=== PATIENT | female | born 1990 | race Caucasian/White ===

== ENCOUNTER 2018-07-03 07:08 | Inpatient (IN) | payer BC, SELFPAY ==
[2018-07-03 07:20] VITALS: BMI 24.6
[2018-07-03] MEDS: Lactated Ringers 1,000 ML 50 ML IV ×3 (07:30→16:25)
[2018-07-03 07:45] LABS: Absolute Lymphocyte Count 2.41 X10^3/ul (0.83-4.51); Absolute Neutrophil Count 5.9 X10^3/uL (2.0-7.7); Basophil# 0.01 X10^3/uL; Basophil% 0.1 % (0-1); Eosinophil# 0.06 X10^3/uL; Eosinophils% 0.7 % (0-5); Hematocrit 35.8 % (37-47); Hemoglobin 11.8 g/dl (12.0-15.0); Lymphocyte # 2.41 X10^3/ul (4.0); Lymphocyte % 26.6 % (19-41); Monocyte# 0.63 X10^3/uL; Monocyte% 6.9 % (0-10); Neutrophil # 5.92 X10^3/uL (2.7-7.7); Neutrophil % 65.3 % (47-70); Platelet Count 210 K/mm3 (150-450); RBC Distribution Width CV 13.5 % (11.6-14.6); RBC Distribution Width SD 42.9 fl (35.1-43.9); Red Blood Count 4.07 M/mm3 (4.2-5.4); White Blood Count 9.1 K/mm3 (4.4-11.0)
[2018-07-03 07:46] LABS: POSITIVE COUNT NO; POSITIVE DIFFERENTIAL NO; POSITIVE MORPHOLOGY NO
[2018-07-03] MEDS: 0.9% Normal Saline 100 ML IV.SOLN. INTRA-UTER (07:48)
[2018-07-03] MEDS: Oxytocin 30 units/NS 500 ml 30 UNITS/500 ML IV.SOLN IV (07:59)
--- NOTE | 2018-07-03 08:34 | HP.PCM_ITS ---
History Date of Admission: 07/03/18 Final CHAGO: 06/27/18 Final CHAGO Source: US <20 weeks Gestational age: 40 Weeks and 6 Days History of this : This is a 28 year-old, 28-year-old 1 para 0 at 40-6/7 weeks for induction of labor due to being 40-6/7 weeks gestation. has been uncomplicated to date. She had good movement. No vaginal bleeding leaking of fluid.. Allergies ibuprofen Allergy (Verified 07/03/18 08:23) Hives Smoking Status: Never smoker Number of Fetus(es): 1 Heart Tracing: Category 1 upon admission TOCO Analysis: irreg ctxs History Past Pregnancies: Past Pregnancies Delivery Date Name GA/Weeks Outcome Route Weight Infant Gender Labor Length Anesthesia Delivery Location Provider FOB Review of Systems Constitutional: Denies: Chills, Fever Cardiovascular: Denies: Chest Pain Respiratory: Denies: Cough Gastrointestinal: Denies: Abdominal Pain Genitourinary: Denies: Dysuria Skin: Denies: Rash Hematologic/ Lymphatic: Reports: Anemia Physical Exam General: Alert, Cooperative, No apparent distress Abdomen: Soft, Non-Distended, Gravid Extremities:: No edema UNIV[employer]ITY TUTOR: Normal external genitalia Estimated gestational size: Appropriate for gestational size Presentation: Cephalic Cervix Dilation (cm): 2 Station: -2 Effacement (%): 70 Assessment/Plan This is a 28 year-old, @ 40-6/7 weeks gestation for induction of labor due to be approximating 41 weeks. [place] and alternatives to induction of labor and was discussed with patient, questions were answered to her satisfaction she desires to proceed we will proceed with Pitocin and Dailey induction. Pelvis is clinically adequate to expect vaginal delivery and estimated weight clinically would be less than 4500 g. Procedure note: Dailey catheter was placed over the cervix in the usual sterile fashion without difficulty and the balloon was inflated to 30 cc with normal saline. Placement over internal cervical loss was confirmed. Patient tolerated the procedure well. Will start Pitocin.
[2018-07-03] MEDS: fentaNYL-bupivacaine (epidural) 100 ML BAG EPIDURAL ×2 (11:45→16:24)
[2018-07-03] MEDS: Ondansetron 4 MG/2 ML Vial IV (17:30)
[2018-07-03] MEDS: Oxytocin 30 units/NS 500 ml 30 UNITS/500 ML IV.SOLN 334 UNITS IV (19:15)
--- NOTE | 2018-07-03 19:38 | OP.PCM_ITS ---
Report of Operation Date of Procedure: 07/03/18 Vaginal Delivery Maternal Presentation: Spontaneous Rupture of Membranes, Medically Indicated Induction Method of Induction: Pitocin, Dailey Bulb, Amniotomy Medical Reason for Induction: - - 40 6/7 weeks Amniotic Membrane Rupture Type: Artificial Amniotic Fluid Description: Moderate meconium Final CHAGO: 06/27/18 Gestational age: 40 Weeks and 6 Days Date of Procedure: 07/03/18 Pre-Operative Diagnosis: labor Post-Operative Diagnosis: same Surgery/ Procedure Performed: Spontaneous Vaginal Delivery Type of Anesthesia: Epidural Description of Procedure: A vigorous female was delivered WING over an intact perineum. The patient had a hymenal remnant band on the right side that split as the head was . The remainder the was delivered with maternal pushing and gentle traction only in less than 15 seconds. The Pitocin infusion was initiated for active management of the third stage. The cord was clamped and cut and not delayed because of the moderate meconium, but the became vigorous very quickly and was left on the maternal abdomen and placed skin to skin initially. The was then having some grunting was then evaluated by the reading recovery teacher on the warmer. The placenta was delivered spontaneously and intact. The cervix and vagina were intact. Where the hymenal remnant had split, the ends of this were oversewn to obtain hemostasis. There were no other lacerations. Sponge and needle counts were correct. A vaginal sweep was completed by me. Presentation: WING Placental Delivery Description: Spontaneous Placenta Disposition: [facility] Cord Vessel Description: 3 Vessels Cord Entanglement: None Drain: Dailey to straight drain Estimated Blood Loss: 200 Infant A gender: Female Episiotomy Description: None Laceration: 1st degree - vaginal Medications given after delivery: IV Pitocin Complications: None
[2018-07-03] MEDS: Oxytocin 30 units/NS 500 ml 30 UNITS/500 ML IV.SOLN 167 UNITS IV (19:45)
[2018-07-04] VITALS (7 sets, daily range): BP systolic 88–109; BP diastolic 52–64; PULSE 69–82; RESP 16–18; TEMP 36.1–37.1; O2SAT 98
[2018-07-04] MEDS: Naproxen 250 MG Tablet 500 MG PO ×3 (00:53→17:26)
--- NOTE | 2018-07-04 08:26 | PCM.PN.OB ---
Subjective: pain well controlled, average lochia - Physical Exam General: Alert, Cooperative, No apparent distress Vital Signs Temp Pulse Resp BP Pulse Ox 97.0 F L 81 18 107/58 L 98 07/04/18 03:50 07/04/18 03:50 07/04/18 03:50 07/04/18 03:50 07/04/18 03:50 Oxygen Delivery Method Room Air Weight: 67.222 kg Body Mass Index (BMI) 24.6 Intake and Output for Last 24 Hours 07/02/18 07/03/18 07/04/18 23:59 23:59 23:59 Intake Total 3200 / 3200 Output Total 1400 / 1400 700 / 700 Balance 1800 / 1800 -700 / -700 Laboratory Tests Past 24 Hrs 07/03/18 07:30 Blood Type A POSITIVE Antibody Screen NEGATIVE Medical Necessity - Tobacco Use Smoking Status: Never smoker Assessment/Plan PPD#1 s/p doing well infant working on
[2018-07-05 01:46] VITALS: BP 97/59; PULSE 82; RESP 18; TEMP 36.6
[2018-07-05 08:18] VITALS: BP 97/57; PULSE 76; RESP 16; TEMP 36.6
--- NOTE | 2018-07-05 09:10 | PCM.PN.OB ---
Subjective: pain well controlled, average lochia - Physical Exam General: Alert, Cooperative, No apparent distress Vital Signs Temp Pulse Resp BP Pulse Ox 97.8 F 76 16 97/57 L 98 07/05/18 08:18 07/05/18 08:18 07/05/18 08:18 07/05/18 08:18 07/04/18 03:50 Oxygen Delivery Method Room Air Weight: 67.222 kg Body Mass Index (BMI) 24.6 Intake and Output for Last 24 Hours 07/03/18 07/04/18 07/05/18 23:59 23:59 23:59 Intake Total 3200 / 3200 Output Total 1400 / 1400 700 / 700 Balance 1800 / 1800 -700 / -700 Medical Necessity - Tobacco Use Smoking Status: Never smoker Assessment/Plan PPD#2\ doing well routine care
--- NOTE | 2018-07-05 09:13 | PCM.DCVAG ---
Discharge Diet: No Restrictions Discharge Activity: Return to Normal Activity, May not drive while taking narcotic pain medications., May Shower May resume sexual activity in: 4-6 weeks Additional Activity Instructions:: Nothing in the vagina for 4-6 weeks. You may return to work/school in 6 weeks. Call your doctor if your incision/area has: Continuous Slow Oozing, Sudden Increased Bleeding, Increased Pain/ Swelling, Increased Redness, Foul Smelling Discharge Additional Instructions: If you experience any of the following, contact your healthcare provider. Bleeding that soaks a pad every hour for 2 hours Fever 100.4 or higher Unrelieved incision or abdominal pain Swelling, redness, discharge or bleeding from your incision or episiotomy site Your incision begins to separate Problems urinating (including inability to urinate or burning while urinating). Visual changes Severe headache Flu-like symptoms Pain or redness in one of both of your breasts Pain, warmth, tenderness or swelling in your legs, especially the calf area Frequent nausea and vomiting Symptoms of depression or anxiety If you experience any of the following, call 911 or go to the nearest Emergency Room. Chest pain Problems breathing Seizure activity Partial or complete paralysis of a body part, slurred speech, weakness or drooping of the face, or a sudden inability to walk or hold your balance Allergies/Adverse Reactions: Allergies ibuprofen Allergy (Verified 07/03/18 08:23) Hives Please Follow Up With: Frida Belle MD - [phone] When: Call to make an appointment with your doctor in 6 weeks. 1-2 weeks as needed Primary Care Physician: Clifford Callaway MD [Primary Care Provider] - Test Results: Test results from this visit will be discussed in further detail at your follow-up appointment, if applicable.
--- NOTE | 2018-07-05 09:14 | DCINST_ITS ---
Discharge Diet: No Restrictions Discharge Activity: Return to Normal Activity, May not drive while taking narcotic pain medications., May Shower May resume sexual activity in: 4-6 weeks Additional Activity Instructions:: Nothing in the vagina for 4-6 weeks. You may return to work/school in 6 weeks. Call your doctor if your incision/area has: Continuous Slow Oozing, Sudden Increased Bleeding, Increased Pain/ Swelling, Increased Redness, Foul Smelling Discharge Additional Instructions: If you experience any of the following, contact your healthcare provider. * Bleeding that soaks a pad every hour for 2 hours * Fever 100.4 or higher * Unrelieved incision or abdominal pain * Swelling, redness, discharge or bleeding from your incision or episiotomy site * Your incision begins to separate * Problems urinating (including inability to urinate or burning while urinating). * Visual changes * Severe headache * Flu-like symptoms * Pain or redness in one of both of your breasts * Pain, warmth, tenderness or swelling in your legs, especially the calf area * Frequent nausea and vomiting * Symptoms of depression or anxiety If you experience any of the following, call 911 or go to the nearest Emergency Room. * Chest pain * Problems breathing * Seizure activity * Partial or complete paralysis of a body part, slurred speech, weakness or drooping of the face, or a sudden inability to walk or hold your balance Allergies/Adverse Reactions: Allergies ibuprofen Allergy (Verified 07/03/18 08:23) Hives Please Follow Up With: Frida Belle MD - [phone] When: Call to make an appointment with your doctor in 6 weeks. 1-2 weeks as needed Primary Care Physician: Clifford Callaway MD [Primary Care Provider] - Test Results: Test results from this visit will be discussed in further detail at your follow- up appointment, if applicable.
[2018-07-05] MEDS: Naproxen 250 MG Tablet 500 MG PO (10:25)
[2018-07-05 12:10] VITALS: BP 104/52; PULSE 78; RESP 16; TEMP 37.1
--- NOTE | 2018-07-10 18:48 | NURSING ---
No answer on follow up phone call, left voice mail
== END 2018-07-05 13:05 | disposition home or self-care (01) | DRG 807 ==
PROVIDERS: Admitting Provider Obstetrics & Gynecology; Family Provider Family Medicine; PCP Family Medicine; Referring Provider Obstetrics & Gynecology; Visit Provider Obstetrics & Gynecology
DX: O48.0 Post-term pregnancy (principal); Z37.0 Single live birth; Z3A.40 40 weeks gestation of pregnancy; O77.0 Labor and delivery complicated by meconium in amniotic fluid; O70.0 First degree perineal laceration during delivery
CPT/HCPCS: 59025; 59050; 85025; 86850; 86900; 99218; J7120; G0378; J2405

== ENCOUNTER 2020-06-25 02:35 | Inpatient (IN) | payer BC, SELFPAY ==
[2020-06-25] VITALS (38 sets, daily range): BP systolic 97–138; BP diastolic 56–96; PULSE 69–96; RESP 14–18; TEMP 36.6–37.2; O2SAT 87–100; BMI 25.3
[2020-06-25] MEDS: Lactated Ringers 500 ML 999 ML IV ×2 (02:45→03:35)
[2020-06-25] MEDS: Lactated Ringers 1,000 ML 50 ML IV (02:45)
[2020-06-25 02:59] LABS: Absolute Lymphocyte Count 2.96 X10^3/uL (0.83-4.51); Absolute Neutrophil Count 8.4 X10^3/uL (2.0-7.7); Basophil# 0.02 X10^3/uL; Basophil% 0.2 % (0-1); Eosinophil# 0.09 X10^3/uL; Eosinophils% 0.7 % (0-5); Hematocrit 38.1 % (37-47); Hemoglobin 12.6 g/dL (12.0-15.0); Lymphocyte # 2.96 X10^3/ul (0.83-4.51); Lymphocyte % 23.8 % (19-41); Mean Corp Hgb Conc 33.1 g/dL (32-36); Mean Corpuscular Hgb 29.9 pg (27.0-32.0); Mean Corpuscular Volume 90.5 fL (81-99); Mean Platelet Vol. 11.4 fl (6.2-12.0); Monocyte# 0.86 X10^3/uL; Monocyte% 6.9 % (0-10); NRBC Flagged by Analyzer 0 % (0-5); Neutrophil # 8.44 X10^3/uL (2.7-7.7); Neutrophil % 67.9 % (47-70); Platelet Count 237 K/mm3 (150-450); RBC Distribution Width CV 12.7 % (11.6-14.6); RBC Distribution Width SD 41.2 fl (35.1-43.9); Red Blood Count 4.21 M/mm3 (4.2-5.4); White Blood Count 12.4 K/mm3 (4.4-11.0)
[2020-06-25] MEDS: fentaNYL-bupivacaine (epidural) 100 ML BAG EPIDURAL (03:45)
--- NOTE | 2020-06-25 04:01 | NURSING ---
pt declines zofran at this time
[2020-06-25] MEDS: Oxytocin 30 units/NS 500 ml 30 UNITS/500 ML IV.SOLN 334 UNITS IV (04:43)
--- NOTE | 2020-06-25 05:07 | PCM.HP.OB ---
HPI - General General Date of Admission: 06/25/20 HPI Narrative DARSHAN NGUYEN, is a 30 F who presents with LOF and ctxs. PFSH Allergy/AdvReac Type Severity Reaction Status Date / Time ibuprofen Allergy Hives Verified 06/25/20 02:44 Surgical History (Updated 06/25/20 @ 05:[address] Trina Lewis MD) History of surgery [place] teeth removed Social History Smoking Status: Never smoker History 2 Elective abortions Hx Para 1 Spontaneous abortions Hx # Term Pregnancies Ectopic pregnancies Hx # Pregnancies Multiple births # of living children Vital Signs Vital Signs Vital Signs: 06/25/20 02:28 06/25/20 02:29 06/25/20 03:18 Temperature 98.2 F Temperature Source Pulse Rate 70 82 85 Blood Pressure 116/83 H BP Systolic 116 BP Diastolic 83 Pulse Ox 98 99 06/25/20 03:20 06/25/20 03:23 06/25/20 03:28 Temperature Temperature Source Pulse Rate 85 94 87 Blood Pressure 134/93 H 120/76 BP Systolic 134 120 BP Diastolic 93 76 Pulse Ox 92 96 98 06/25/20 03:31 06/25/20 03:33 06/25/20 03:42 Temperature Temperature Source Pulse Rate 94 92 82 Blood Pressure 129/85 H 116/77 BP Systolic 129 116 BP Diastolic 85 77 Pulse Ox 98 97 06/25/20 03:44 06/25/20 03:47 06/25/20 03:48 Temperature Temperature Source Pulse Rate 82 81 Blood Pressure 122/77 H 115/77 BP Systolic 122 115 BP Diastolic 77 77 Pulse Ox 98 06/25/20 03:52 06/25/20 03:54 06/25/20 03:57 Temperature Temperature Source Pulse Rate 83 81 Blood Pressure 138/77 H BP Systolic 138 BP Diastolic 77 Pulse Ox 97 98 06/25/20 03:58 06/25/20 04:02 06/25/20 04:04 Temperature Temperature Source Pulse Rate 87 87 77 Blood Pressure 128/96 H 122/88 H BP Systolic 128 122 BP Diastolic 96 88 Pulse Ox 95 06/25/20 04:07 06/25/20 04:08 06/25/20 04:13 Temperature Temperature Source Pulse Rate 88 94 93 Blood Pressure BP Systolic BP Diastolic Pulse Ox 96 94 87 06/25/20 04:17 06/25/20 04:18 06/25/20 05:00 Temperature 98.2 F Temperature Source Temporal Pulse Rate 84 92 89 Blood Pressure 109/61 BP Systolic 109 BP Diastolic 61 Pulse Ox 100 93 97 Physical Exam Const alert and oriented x3 Assessment & Plan Assessment/Plan (1) Supervision of normal : Status: Acute Code(s): Z34.90 - Encounter for supervision of normal , unspecified, unspecified trimester Plan: 30yo in labor Admit to L&D Expectant management EFW - less than 4500g, patient with adequate pelvis GBS positive - pcn per protocol Pain - epidural Routine care
--- NOTE | 2020-06-25 05:18 | EX.PCM.OBRPT ---
Report of Operation (OB) Information Final CHAGO: 06/26/20 Gestational age: 39 Weeks and 6 Days Operative Information Date of Procedure: 06/25/20 Pre-Operative Diagnosis: Labor Post-Operative Diagnosis: Labor Type of Anesthesia: Epidural Findings Description of Procedure: Patient prepped & draped in stirrups when C/C/+2. She pushed well to deliver the head. Shoulders & body easily followed. placed on maternal abdomen where 3VC clamped & cut in delayed fashion. Placenta delivered with gentle traction and good uterine tone obtained. : 9 at 1 minute and 9 at 5 minutes 3VC No nuchal cord Surgery/ Procedure Performed: Spontaneous Vaginal Delivery Presentation: Positive for Vertex Amniotic Fluid Description: Clear Placental Delivery Description: Expressed Placenta Disposition: [facility] Gender: Male (Peter) Delayed Cord Clamping: Yes Esitmated Blood Loss (mL): 450ml Medications Given Medications Given After Delivery: IV Pitocin Post Vaginal Delivery Episiotomy Description: None Laceration: 2nd degree (perineal - repaired with 3-0 vicryl)
[2020-06-25] MEDS: 0.9% Saline Lock 10 ML Syringe IV (07:04)
--- NOTE | 2020-06-25 12:12 | PCM.PN.OB ---
Subjective Subjective: Patient feeling good. Minimal pain. Voiding and ambulating without difficulty. with support. Anticipate discharge tomorrow. Objective Data Objective Data Vital Signs: Vital Signs Temp Pulse Resp BP Pulse Ox 98.9 F 73 14 97/57 L 95 06/25/20 12:02 06/25/20 12:02 06/25/20 12:02 06/25/20 12:02 06/25/20 06:47 Oxygen Delivery Method Room Air Weight: 147 lb 11.2 oz Body Mass Index (BMI) 25.3 Intake & Output: Intake and Output for Last 24 Hours 06/23/20 06/24/20 06/25/20 23:59 23:59 23:59 Intake Total 2326.78 / 2326.78 Output Total 200 / 200 Balance 2126.78 / 2126.78 Lab / Micro Data Result Diagrams: 06/25/20 02:50 Labs: Laboratory Results - last 24 hr 06/25/20 06/25/20 02:50 02:50 WBC 12.4 H RBC 4.21 Hgb 12.6 Hct 38.1 MCV 90.5 MCH 29.9 MCHC 33.1 RDW Std Deviation 41.2 RDW Coeff of Hailey 12.7 Plt Count 237 MPV 11.4 Immature Gran % (Auto) 0.500 Neut % (Auto) 67.9 Lymph % (Auto) 23.8 Desha % (Auto) 6.9 Eos % (Auto) 0.7 Baso % (Auto) 0.2 Absolute Neuts (auto) 8.4 H Absolute Lymphs (auto) 2.96 Nucleated RBC % 0 Blood Type A POSITIVE Antibody Screen NEGATIVE Micro: Microbiology 06/25/20 02:50 Mucosa - Nasopharyngeal SARS-CoV-2 Antigen (Rapid) - Final Physical Exam Const alert and oriented x3 HEENT normocephalic Eyes General Eye: normal appearance of both eyes Neck full ROM Chest Chest: symmetrical chest wall rise Resp normal respiratory effort, normal air movement and no retractions Cardio regular rate GI normal to inspection, nondistended, normoactive bowel sounds, soft to palpation and non-tender Back/Spine normal ROM Extremity full ROM, normal capillary refill and no calf tenderness Skin no rashes or lesions noted Neuro CN's II-XII intact bilaterally Psych mental status grossly normal and thought process normal Assessment & Plan Assessment/Plan (1) (spontaneous vaginal delivery): Status: Acute Code(s): O80 - Encounter for full-term uncomplicated delivery Plan: Continue routine care Pain control support Anticipate discharge tomorrow
[2020-06-25] MEDS: Acetaminophen 500 MG Tablet 1000 MG PO (12:58)
[2020-06-25] MEDS: Naproxen 250 MG Tablet PO (20:34)
[2020-06-26 00:27] VITALS: BP 99/65; PULSE 71; RESP 18; TEMP 36.8
[2020-06-26] MEDS: Acetaminophen 500 MG Tablet 1000 MG PO (00:31)
[2020-06-26 04:55] VITALS: BP 95/61; PULSE 66; RESP 18; TEMP 36.3
[2020-06-26] MEDS: Naproxen 250 MG Tablet PO ×2 (08:28→17:23)
[2020-06-26] MEDS: Senna/Docusate Sodium 1 Tablet PO (08:29)
[2020-06-26 08:30] VITALS: BP 95/66; PULSE 70; RESP 16; TEMP 36.2
--- NOTE | 2020-06-26 10:18 | PCM.PN.OB ---
Subjective Subjective: Patient seen at bedside. Feeling sore. Ambulating and voiding without difficulty. going well. Taking Naproxen PO for pain. Desires discharge home today. Objective Data Objective Data Vital Signs: Vital Signs Temp Pulse Resp BP Pulse Ox 97.1 F L 70 16 95/66 95 06/26/20 08:30 06/26/20 08:30 06/26/20 08:30 06/26/20 08:30 06/25/20 06:47 Oxygen Delivery Method Room Air Weight: 147 lb 11.2 oz Body Mass Index (BMI) 25.3 Intake & Output: Intake and Output for Last 24 Hours 06/24/20 06/25/20 06/26/20 23:59 23:59 23:59 Intake Total 2326.78 / 2326.78 Output Total 200 / 200 Balance 2126.78 / 2126.78 Lab / Micro Data Result Diagrams: 06/25/20 02:50 Micro: Microbiology 06/25/20 02:50 Mucosa - Nasopharyngeal SARS-CoV-2 Antigen (Rapid) - Final Physical Exam Const alert and no apparent distress General Appearance: cooperative and comfortable Exam Limitations: no limitations HEENT normocephalic Eyes General Eye: normal appearance of both eyes Neck full ROM General: normal visual inspection Chest Chest: symmetrical chest wall rise Resp normal respiratory effort and normal air movement Effort and Inspection: symmetric chest movement Auscultation: clear to auscultation bilaterally Cardio regular rate and regular rhythm GI normal to inspection, nondistended, normoactive bowel sounds Back/Spine normal ROM Extremity full ROM and no calf tenderness General Extremity: normal exam except as noted Skin no rashes or lesions noted Neuro CN's II-XII intact bilaterally Psych mental status grossly normal Assessment & Plan Assessment/Plan (1) (spontaneous vaginal delivery): Status: Acute Code(s): O80 - Encounter for full-term uncomplicated delivery Plan: PPD #2 Routine care Pain control support Discharge home with follow up in office. (2) Obstetrical laceration, second degree: Status: Acute Code(s): O70.1 - Second degree perineal laceration during delivery
--- NOTE | 2020-06-26 10:22 | PCM.DC ---
Discharge Instructions Outpatient Procedure Reason For Visit: VAG Follow Up Care Test Results: Test results from this visit will be discussed in further detail at your follow-up appointment, if applicable. Discharge Plan Admission Admit Date/Time: 06/25/20 02:35 Primary Reason for Your Visit: Attending Provider: Trina Lewis Disposition Patient Disposition: Home, self care
--- NOTE | 2020-06-26 12:50 | PCM.DC ---
Discharge Instructions Outpatient Procedure Reason For Visit: VAG Diet Discharge Diet: No restrictions Activity Discharge Activity: No Restrictions May resume sexual activity in: 6-8 weeks Weight Bearing Status: Weight bearing as tolerated Follow Up Care Please Follow Up With: Felipa Maier CNM When: 2 weeks virtual visit, 6 weeks in office Test Results: Test results from this visit will be discussed in further detail at your follow-up appointment, if applicable. Discharge Plan Admission Admit Date/Time: 06/25/20 02:35 Primary Reason for Your Visit: Attending Provider: Trina Lewis Discharge Orders/Prescriptions Referrals: Trina Lewis MD [STAFF PHYSICIAN] - (2 weeks virtual visit/ 6 weeks in office) Disposition Patient Disposition: Home, self care
[2020-06-26 14:00] VITALS: BP 106/70; PULSE 79; RESP 16; TEMP 37.1
== END 2020-06-26 18:20 | disposition home or self-care (01) | DRG 807 ==
LOC: WPOUT 02:42 → WP 02:42
PROVIDERS: Admitting Provider Obstetrics & Gynecology; Visit Provider Obstetrics & Gynecology
DX: O70.1 Second degree perineal laceration during delivery (principal); Z37.0 Single live birth; Z3A.39 39 weeks gestation of pregnancy
CPT/HCPCS: 59025; 59050; 85025; 86850; 86900; 86901; 87426; 99218; J7120; A4216; G0378

== ENCOUNTER 2021-03-16 10:13 | Outpatient (CLI) | payer OTHER, SELFPAY ==
--- NOTE | 2021-03-16 | IMM_PTH ---
PATIENT: DARSHAN NGUYEN LOC: [facility] U#:[id number] AGE/SX: 30/F ROOM: RE03/16/[address]: Dr. Clifford Contreras MD : 1990 BED: DIS: 03/16/2021 SPEC #: [id number] RECD: 03/17/21 14:42 STATUS: INDIGO REQ #: [id number] ORESTES: 03/16/21 00:[address]: Clifford Contreras DEPT: IMMUNOHISTOCHEMISTRY RECD BY: Christina Dyson ENTERED: 03/17/21 14:43 SP TYPE: IMMUNO OTHR DR: No Primary Care Phys Tissues: Shoulder, NOS Procedures: SMA (add) CD31 (add) CD34 (add) DESMIN (add) P53 (add) Vimentin (add) FACTOR VIII (add) Pankeratin (initial) MELAN-A (add) S-100 (add) PHYSICIAN & INSTITUTION [place] [id number] SPECIMEN INFORMATION: Tissue Source: Left posterior shoulder tissue Clinical Info: Left posterior shoulder nodule Specimen Number: [id number] #1 CPT code: 47863, 90151 x9 METHODOLOGY: Deparaffinized sections of prefer/formalin-fixed tissue or PAP/DQ stained slides are incubated with monoclonal/polyclonal antibodies/oligonucleotide probes. Localization is made via biotin free immunoperoxidase method. Appropriate controls are performed and reacted as expected. Results on target cell population are indicated in the following table: RESULTS: ANTIBODY / CLONE RESULT Block 1 AE1-3 (AE1/AE3/PCK26) negative Vimentin (V9) positive CD31 (KIZZY/70A) negative Factor VIII (R Ag) negative CD34 (QBEnd-10) negative Actin (1A4) positive Desmin (CE-R-11) negative Melan A (A103) negative S-100 (4C4.9) negative P53 (DO-7) negative These tests were developed and their performance characteristics determined by [facility]. They may not have been cleared or approved by the U.S. Food and Drug Administration. The FDA has determined that such clearance or approval is not necessary. The above immunohistochemical/dualISH markers are ordered and reviewed by the Pathologist. INTERPRETATION: Skin and soft tissue of left posterior shoulder, excision: Consistent with dermatofibroma. AM:max 03/25/2021 Case has been reviewed in consultation with Dr. Mcduffie who concurs with the above diagnosis. IDC:[id number]
--- NOTE | 2021-03-16 07:30 | SOF_PTH ---
PATIENT: DARSHAN NGUYEN LOC: [facility] U#:[id number] AGE/SX: ROOM: RE03/16/[address]: Dr. Clifford Contreras MD : 1990 BED: DIS: 03/16/2021 SPEC #: [id number] RECD: 03/16/21 09:58 STATUS: INDIGO JAMES #: [id number] ORESTES: 03/16/21 07:[address]: Clifford Contreras DEPT: SURGICAL PATHOLOGY RECD BY: Vesta Hancock ENTERED: 03/16/21 10:58 SP TYPE: SOFT TISS OTHR DR: No Primary Care Phys Tissues: Soft tissues, NOS Procedures: Surgery Specimen Level IV HEADER OPERATION: Excision left shoulder nodule PRE-OP DIAGNOSIS: Left posterior shoulder nodule TISSUE SUBMITTED: Left posterior shoulder tissue MICROSCOPIC DIAGNOSIS Skin and soft tissue of left posterior shoulder, excision: Consistent with dermatofibroma. See comment. AM:max 03/25/2021 COMMENT Immunohistochemistry ([id number]) supports the above diagnosis. This case was seen in consultation with Dr. Danielle of [facility] who concurs with the diagnosis. Complete consultative report is viewable in EMR. Case has been reviewed in consultation with Dr. Mcduffie who concurs with the above diagnosis. IDC:[id number] MICROSCOPIC DESCRIPTION Slides are reviewed. GROSS DESCRIPTION Received in fixative is one container labeled with the patient's name and designated left shoulder. The specimen consists of a piece of skin with underlying tissue measuring 2.3 x 1 cm. The underlying tissue measures 2.5 x 1.5 x 1 cm. The specimen is inked, serially sectioned and submitted entirely in two cassettes. / GABY:max 03/16/2021 TC:5 CPT: 36987
== END 2021-03-16 23:59 | disposition short-term general hospital (02) ==
LOC: LABSPEC 10:14
PROVIDERS: Visit Provider Surgery
DX: D23.62 Other benign neoplasm of skin of left upper limb, including shoulder (principal)
CPT/HCPCS: 88305; 88341; 88342

== ENCOUNTER 2022-03-15 23:47 | Inpatient (IN) | payer OTHER, SELFPAY ==
[2022-03-15 21:23] VITALS: BMI 25.4
[2022-03-15 21:42] VITALS: BP 102/62; PULSE 79; TEMP 37.3
[2022-03-15 22:37] VITALS: PULSE 77; O2SAT 97
--- NOTE | 2022-03-15 23:45 | NURSING ---
orders obtained via telephone by this RN not via verbal order
[2022-03-16] VITALS (37 sets, daily range): BP systolic 91–121; BP diastolic 50–78; PULSE 62–103; RESP 15–16; TEMP 36.3–37.4; O2SAT 96–98
[2022-03-16] MEDS: LACTATED RINGERS 500 ML 999 ML IV
[2022-03-16 00:11] LABS: Absolute Lymphocyte Count 3.11 X10^3/uL (0.83-4.51); Basophil# 0.02 X10^3/uL; Basophil% 0.2 % (0-1); Eosinophil# 0.06 X10^3/uL; Eosinophils% 0.5 % (0-5); Hematocrit 34.9 % (37-47); Hemoglobin 11.2 g/dL (12.0-15.0); Lymphocyte # 3.11 X10^3/ul (0.83-4.51); Lymphocyte % 28.2 % (19-41); Mean Corp Hgb Conc 32.1 g/dL (32-36); Mean Corpuscular Hgb 28.1 pg (27.0-32.0); Mean Corpuscular Volume 87.5 fL (81-99); Mean Platelet Vol. 11.4 fl (6.2-12.0); Monocyte# 0.76 X10^3/uL; Monocyte% 6.9 % (0-10); NRBC Flagged by Analyzer 0 % (0-5); Neutrophil # 7.02 X10^3/uL (2.7-7.7); Neutrophil % 63.7 % (47-70); Platelet Count 211 K/mm3 (150-450); RBC Distribution Width CV 13.6 % (11.6-14.6); Red Blood Count 3.99 M/mm3 (4.2-5.4)
[2022-03-16] MEDS: Lactated Ringers 1,000 ML 200 ML IV (00:31)
[2022-03-16] MEDS: fentaNYL-bupivacaine (epidural) 100 ML BAG EPIDURAL (01:01)
[2022-03-16] MEDS: Oxytocin 10 UNITS/ML Vial IM (03:07)
--- NOTE | 2022-03-16 03:18 | PCM.HP.OB ---
HPI - General General Date of Admission: 03/14/22 Chief Complaint: contractions. HPI Narrative DARSHAN NGUYEN, is a 31 F who presents c/o ctx- was found to be 3-4cm- kept and cevical exam rechecked- making change- admitted for labor. [facility] Medical History (Updated 03/16/22 @ 03:[address] Veena Saldivar MD) History of prior with IUGR Home Medications 1 tab PO/SL DAILY 03/15/22 [History Last Taken 03/14/22 21:00] Allergy/AdvReac Type Severity Reaction Status Date / Time ibuprofen Allergy Hives Verified 03/15/22 21:33 Family History Mother Breast cancer Osteoporosis Thyroid disorder Surgical History (Updated 03/16/22 @ 00:02 by Rosa Carreno) [place] teeth removed Social History Smoking Status: Never smoker alcohol intake: never substance use type: does not use History 2 Elective abortions Hx Para 2 Spontaneous abortions Hx # Term Pregnancies Ectopic pregnancies Hx # Pregnancies Multiple births # of living children NST FHR Rate Baby A Baseline: 140 Variability:: Moderate Accelerations:: 15 x 15 Decelerations:: None NST Reactive:: Yes FHR Category:: Category I Uterine Activity:: irregular Vital Signs Vital Signs Vital Signs: 03/15/22 21:42 03/15/22 21:42 03/15/22 21:42 Temperature 99.1 F Pulse Rate 79 Blood Pressure 102/62 BP Systolic 102 BP Diastolic 62 Pulse Ox 03/15/22 22:37 03/15/22 22:37 03/16/22 00:25 Temperature 98.6 F Pulse Rate 77 Blood Pressure BP Systolic BP Diastolic Pulse Ox 97 03/16/22 00:25 03/16/22 00:25 03/16/22 00:26 Temperature Pulse Rate 77 Blood Pressure 112/56 L BP Systolic 112 BP Diastolic 56 Pulse Ox 98 03/16/22 00:26 03/16/22 00:40 03/16/22 00:40 Temperature Pulse Rate 73 92 Blood Pressure BP Systolic BP Diastolic Pulse Ox 97 03/16/22 00:45 03/16/22 00:45 03/16/22 00:47 Temperature Pulse Rate 80 Blood Pressure 112/69 BP Systolic 112 BP Diastolic 69 Pulse Ox 97 03/16/22 00:47 03/16/22 00:50 03/16/22 00:50 Temperature Pulse Rate 72 83 Blood Pressure 105/68 BP Systolic 105 BP Diastolic 68 Pulse Ox 03/16/22 00:50 03/16/22 00:55 03/16/22 00:55 Temperature Pulse Rate 73 Blood Pressure 117/78 BP Systolic 117 BP Diastolic 78 Pulse Ox 97 03/16/22 00:55 03/16/22 01:00 03/16/22 01:00 Temperature Pulse Rate 78 Blood Pressure 108/74 BP Systolic 108 BP Diastolic 74 Pulse Ox 97 03/16/22 01:00 03/16/22 01:00 03/16/22 01:06 Temperature Pulse Rate 80 Blood Pressure 116/70 BP Systolic 116 BP Diastolic 70 Pulse Ox 96 03/16/22 01:06 03/16/22 01:08 03/16/22 01:08 Temperature Pulse Rate 100 95 Blood Pressure BP Systolic BP Diastolic Pulse Ox 98 03/16/22 01:10 03/16/22 01:10 03/16/22 01:13 Temperature Pulse Rate 88 91 Blood Pressure 115/72 BP Systolic 115 BP Diastolic 72 Pulse Ox 03/16/22 01:13 03/16/22 01:16 03/16/22 01:16 Temperature Pulse Rate 85 Blood Pressure 121/76 H BP Systolic 121 BP Diastolic 76 Pulse Ox 96 03/16/22 01:18 03/16/22 01:18 03/16/22 01:22 Temperature Pulse Rate 79 Blood Pressure 112/74 BP Systolic 112 BP Diastolic 74 Pulse Ox 96 03/16/22 01:22 03/16/22 01:50 03/16/22 01:50 Temperature Pulse Rate 85 71 Blood Pressure 108/61 BP Systolic 108 BP Diastolic 61 Pulse Ox 03/16/22 01:50 03/16/22 01:50 03/16/22 01:50 Temperature 99.0 F Pulse Rate 75 Blood Pressure BP Systolic BP Diastolic Pulse Ox 96 03/16/22 02:13 03/16/22 02:13 03/16/22 02:19 Temperature Pulse Rate 74 Blood Pressure 111/76 121/78 H BP Systolic 111 121 BP Diastolic 76 78 Pulse Ox 03/16/22 02:19 03/16/22 02:25 03/16/22 02:25 Temperature Pulse Rate 78 84 Blood Pressure 112/61 BP Systolic 112 BP Diastolic 61 Pulse Ox 03/16/22 02:29 03/16/22 02:29 03/16/22 02:33 Temperature Pulse Rate 72 Blood Pressure 101/62 106/68 BP Systolic 101 106 BP Diastolic 62 68 Pulse Ox 03/16/22 02:33 03/16/22 02:38 03/16/22 02:38 Temperature Pulse Rate 77 94 Blood Pressure 114/71 BP Systolic 114 BP Diastolic 71 Pulse Ox 03/16/22 02:43 03/16/22 02:43 Temperature Pulse Rate 103 H Blood Pressure 109/66 BP Systolic 109 BP Diastolic 66 Pulse Ox Weight Weight: 69.4 kg Body Mass Index (BMI) 25.4 Physical Exam Const alert and oriented x3 General Appearance: cooperative HEENT normocephalic GI GI Narrative: Gravid, non tender to palpation. OB / External & Speculum: external exam normal Extremity normal to inspection Skin no rashes or lesions noted Neuro oriented x3 and CN's II-XII intact bilaterally Psych Appearance: grossly normal Labs Labs Labs: Blood Type A POSITIVE Antibody Screen NEGATIVE Hct 34.9 % (37-47) L Hgb 11.2 g/dL (12.0-15.0) L Rhogam given: No Assessment & Plan (1) 39 weeks gestation of : (2) Positive GBS test: (3) Active labor at term: PLAN: Plan Admit to L&D [place] FHR/TOCO Epidural if requested for pain Monitor VS Anticipate
--- NOTE | 2022-03-16 03:21 | EX.PCM.OBRPT ---
Vaginal Delivery Maternal Presentation Maternal Presentation: Active Labor Operative Information Date of Procedure: 03/16/22 Pre-Operative Diagnosis: 39 weeks gestation , + GBS Post-Operative Diagnosis: same, live male Surgery / Procedure Performed: Spontaneous Vaginal Delivery Type of Anesthesia: Epidural Estimated Blood Loss: 150 Time of Delivery: 03:02 Findings Description of Procedure: Patient progressed to fully dilated. Good maternal pushing efforts delivered the infant's head followed by the infant shoulders with gentle downward traction followed by the rest the infant's body. The infant was placed on the mother's chest for immediate skin to skin. Delayed cord clamping was performed. Placenta was then delivered intact without complication. Delayed cord clamping was performed. The cord was clamped and cut. There were membranes that were noted to be stuck at the lower uterine segment those were removed manually. The uterus was explored and no further membranes were appreciated. Bleeding was minimal. IM Pitocin was given. No vaginal or perineal lacerations were appreciated. Presentation: Vertex Amniotic Membrane Rupture Type: Artificial Amniotic Fluid Description: Clear Placental Delivery Description: Spontaneous Placenta Disposition: [facility] Specimen(s) Removed: placenta Cord Vessel Description: 3 Vessels Cord Entanglement: None Infant A Gender: Male (1 minute): 9 (5 minute): 9 Delayed Cord Clamping: Yes Post Vaginal Delivery Medications Given After Delivery: - (IM Pitocin ) Episiotomy Description: None Laceration: None Complication Complications: None
[2022-03-16] MEDS: 0.9% Saline Lock 10 ML Syringe IV (03:43)
--- NOTE | 2022-03-16 07:20 | NURSING ---
bedside report given to Jose A Parra RN who is assuming care of pt at this time
[2022-03-16] MEDS: Acetaminophen 500 MG Tablet 1000 MG PO ×3 (07:30→23:22)
[2022-03-16] MEDS: Prenatal Vits Tablet 1 TABLET PO (12:28)
[2022-03-17 04:34] VITALS: BP 90/52; PULSE 67; RESP 17; TEMP 36.5
--- NOTE | 2022-03-17 06:56 | PCM.PN.OB ---
Subjective Subjective Patient seen at bedside. Feeling good. Ambulating and voiding without difficulty. Lochia decreasing. with minimal support. Desires discharge home today. Objective Data Objective Data Vital Signs: Vital Signs Temp Pulse Resp BP Pulse Ox O2 Del Method 97.7 F L 67 17 90/52 L 96 Room Air 03/17/22 04:34 03/17/22 04:34 03/17/22 04:34 03/17/22 04:34 03/16/22 09:00 03/16/22 16:20 Oxygen Delivery Method Room Air Weight: 153 lb Body Mass Index (BMI) 25.4 Intake & Output: Intake and Output for Last 24 Hours 03/15/22 03/16/22 03/17/22 23:59 23:59 23:59 Intake Total 978.33 / 978.33 Output Total 1750 / 1750 Balance -771.67 / -771.67 Lab / Micro Data Result Diagrams: 03/15/22 23:55 ROS Eyes Eyes: Denies blurry vision, change in vision or spots in vision ENT HEENT: Denies dizziness or headache(s) Cardiovascular Cardiovascular: Denies abdominal pain, chest pain or dyspnea Respiratory/Chest Respiratory/Chest: Denies cough, dyspnea, shortness of breath at rest or shortness of breath with exertion Gastrointestinal Gastrointestinal: Denies abdominal pain, diarrhea or vomiting Genitourinary Genitourinary: Denies change in urinary stream, difficulty urinating or dysuria Musculoskeletal Musculoskeletal: Reports none Integumentary Integumentary: Denies rash Neurologic Neurologic: Denies dizziness, headache(s), memory loss or weakness Physical Exam Const alert and no apparent distress General Appearance: cooperative and comfortable Exam Limitations: no limitations HEENT normocephalic Eyes General Eye: normal appearance of both eyes Neck full ROM General: normal visual inspection Chest Chest: symmetrical chest wall rise Resp normal respiratory effort and normal air movement Effort and Inspection: symmetric chest movement Auscultation: clear to auscultation bilaterally Cardio regular rate and regular rhythm GI normal to inspection, nondistended, normoactive bowel sounds Back/Spine normal ROM Extremity full ROM and no calf tenderness General Extremity: normal exam except as noted Skin no rashes or lesions noted Neuro CN's II-XII intact bilaterally Psych mental status grossly normal Assessment & Plan (1) (spontaneous vaginal delivery): (2) Care and examination of lactating mother: PLAN: Plan PPD 1 Routine care support D/C home with follow up in office
--- NOTE | 2022-03-17 07:04 | DCINST_ITS ---
Discharge Instructions Diet Discharge Diet: No restrictions Activity Discharge Activity: Return to Normal Activity, May Shower and May Take a Tub Bath May resume sexual activity in: 4-6 weeks Weight Bearing Status: Weight bearing as tolerated Dressing / Incision Call your doctor if you observe: Inability to urinate, Using more than 1 pad per hour, Shortness of breath, Dizziness, Swelling in the ankles, Chest pain, Calf discomfort and Uncontrolled pain Follow Up Care When: Within 14 days Test Results: Test results from this visit will be discussed in further detail at your follow- up appointment, if applicable. Discharge Plan Admission Admit Date/Time: 03/15/22 23:47 Primary Reason for Your Visit: Labor and Delivery Attending Provider: Veena Saldivar Primary Care Provider: Care Physician,Poonam Primary Discharge Orders/Prescriptions Prescriptions: No Action 1 tab PO/SL DAILY Referrals / Follow Up: Care Physician,No Primary [Primary Care Provider] - Disposition Disposition (needs filled in before D/C Order can be placed): Home, Self Care
[2022-03-17] MEDS: Acetaminophen 500 MG Tablet 1000 MG PO (08:41)
[2022-03-17 08:46] VITALS: BP 105/67; PULSE 71; RESP 18; TEMP 36.6
[2022-03-17] MEDS: Prenatal Vits Tablet 1 TABLET PO (12:19)
[2022-03-17 15:05] VITALS: BP 107/66; PULSE 91; RESP 18; TEMP 36.5
== END 2022-03-17 16:00 | disposition home or self-care (01) | DRG 807 ==
LOC: WPOUT 23:47 → WP 23:47
PROVIDERS: Admitting Provider Obstetrics & Gynecology; Visit Provider Obstetrics & Gynecology
DX: O99.824 Streptococcus B carrier state complicating childbirth (principal); Z37.0 Single live birth; O26.23 Pregnancy care for patient with recurrent pregnancy loss, third trimester; B95.1 Streptococcus, group B, as the cause of diseases classified elsewhere; Z3A.39 39 weeks gestation of pregnancy
CPT/HCPCS: 59025; 59050; 85025; 86850; 86900; 86901; 99221; J7120; A4216; G0378

== ENCOUNTER → 2023-10-30 | Outpatient (CLI) | payer OTHER, SELFPAY ==
[2023-10-30 17:55] LABS: Red Blood Cells-Urine 0 SEEN /hpf (0-5)
[2023-10-30 18:12] LABS: Color, Urine Yellow (Yellow); Glucose, Dipstick Normal (Normal); Ketone-Dipstick 5 mg/dl (Negative); Leukocyte Esterase-Dipstick 100 /ul (Negative); Nitrite-Dipstick Positive (Negative); Occult Blood-Urine Negative /ul (Negative); Protein-Dipstick 30 mg/dl (Negative); Urine Bilirubin Dipstick Negative (Negative); Urine Clarity Sl. Cloudy (Clear); Urine Urobilinogen 1 mg/dl (Normal)
[2023-10-30 18:42] LABS: Mucous, Urine 3+ /hpf (<or=2+)
[2023-10-30 18:43] LABS: Bacteria 1+ /hpf (None Seen); Squamous Epithelial Cells - UA 0-5 SEEN /hpf (5-10); White Blood Cells 10-25 SEEN /hpf (0-5)
== END | disposition home or self-care (01) ==
PROVIDERS: Referring Provider Physician Assistant; Visit Provider Physician Assistant
DX: R30.0 Dysuria (principal)
CPT/HCPCS: 81001; 87086; 87088; 87186